=== PATIENT | female | born 1950 | race Caucasian/White ===

== ENCOUNTER 2021-05-16 08:42 | Outpatient (CLI) | payer MEDICARE, BC ==
[2021-05-16] MEDS ORDERED: iohexol 300mg/ml 100ml inj. ONE (09:21)
== END 2021-05-16 23:59 | disposition home or self-care (01) ==
LOC: 64 CT 08:42
PROVIDERS: ATTEND Family Medicine
DX: K57.30 Diverticulosis of large intestine without perforation or abscess without bleeding (principal); N83.201 Unspecified ovarian cyst, right side; M81.0 Age-related osteoporosis without current pathological fracture
CPT/HCPCS: 74177; Q9967